=== PATIENT | female | born 1975 | race Caucasian/White ===

== ENCOUNTER → 2019-04-25 | Outpatient (CLI) | payer OTHER ==
--- NOTE | 2019-04-25 15:13 | CARD ---
MR#: [id number] Date of Study: 04/25/2019 Ordering Physician: MICHELLE BLUNT, Referring Physician: MICHELLE BLUNT, Tech: Mahi Vasquez [facility] APPROVED REPORT INDICATION Palpitations Exertional Dyspnea Reason : Patient complained of shortness of breath PROCEDURE The patient underwent an Exercise Stress Test using the Kang Protocol. Blood pressure, heart rate, a nd EKG were monitored. An Echocardiogram was performed by electrical mechanical technician in four stages in quad fashion. At peak stress four se lected images were obtained and placed side by side with resting images for comparison. STRESS ECHO FINDINGS The resting Echocardiogram showed normal left ventricular systolic contractility with an estimated Ej ection Fraction of about 60 %. The Resting Echocardiogram showed normal augmentation of myocardial wall segments using a 16 segment model. The Stress Echocardiogram showed normal augmentation of myocardial wall segments using a 16 segment m itzel. The Stress Echocardiogram left ventricular systolic contractility has an estimated Ejection Fraction of about 65%. Test Type: Exercise STRESS ECG Stress EKG shows no significant changes. Preliminary Notification Critical Value: No <Conclusion> Normal baseline wall motion with an EF of 55% No significant ischemia on EKG Normal exercise capacity with 14 minutes on a Kang protocol. Normal stress wall motion and EF at 65%. (Decrease specificity due to images being obateind at less t leyva 85% APMHR) Low risk study overall. Signed by : Azael Rosales, Electronically Approved : 04/25/2019 15:12:18
== END ==
LOC: ECHO 12:37
PROVIDERS: ATTEND Internal Medicine Cardiovascular Disease
DX: R06.09 Other forms of dyspnea (principal)
CPT/HCPCS: 93017; 93350